=== PATIENT | female | born 1950 | race Caucasian/White ===

== ENCOUNTER → 2016-12-17 | Outpatient (CLI) | payer MEDICARE ==
--- NOTE | 2016-12-19 07:14 | MM ---
Reason for exam: screening (asymptomatic). Last mammogram was performed 1 year and 7 months ago. History: Patient is postmenopausal. Took estrogen for 2 years beginning at age 51. Took progesterone for 2 years beginning at age 51. Physical Findings: A clinical breast exam by your physician is recommended on an annual basis and results should be correlated with mammographic findings. MG 3D Screening Mammo W/Cad Bilateral CC and MLO view(s) were taken. Prior study comparison: May 12, 2015, bilateral MG screening mammo w CAD. May 11, 2014, bilateral MG screening mammo w CAD. There are scattered fibroglandular densities. No significant changes when compared with prior studies. ASSESSMENT: Benign, BI-RAD 2 RECOMMENDATION: Routine screening mammogram of both breasts in 1 year.
== END | disposition home or self-care (01) ==
LOC: RADMAMWWP 16:26
PROVIDERS: ATTEND Family Medicine
DX: Z12.31 Encounter for screening mammogram for malignant neoplasm of breast (principal)
CPT/HCPCS: 77063; G0202

== ENCOUNTER → 2018-02-17 | Outpatient (CLI) | payer MEDICARE ==
--- NOTE | 2018-02-17 16:36 | BD ---
EXAMINATION TYPE: Axial Bone Density DATE OF EXAM: 02/17/2018 COMPARISON: 02/15/2016 CLINICAL HISTORY: 68-year-old female screening for osteoporosis Height: 64 IN Weight: 183 LBS RISK FACTORS HISTORY OF: Active: YES Diet low in dairy products/other sources of calcium: YES Postmenopausal woman: AGE 51 Take estrogen and/or progesterone medications: NOT NOW How long: AGE 51 - 52 MEDICATIONS: Thyroid Medications: YES Which medication: Levothyroxine How Lon YEARS Additional Medications: LEVOTHYROXIN, ENALAPRIL, HCTZ, PRAVASTATIN, EXAM MEASUREMENTS: Bone mineral densitometry was performed using the [employer] System. Bone mineral density as measured about the Lumbar spine is: ----- L1-L4(G/cm2): 1.274 T Score Values are as follows: ----- L2: -1.1 ----- L3: -0.3 ----- L4: 3.5 ----- L1-L4: 0.8 Bone mineral density has: Decreased -9.9% since study of: 02/15/2016 Bone mineral density about the R hip (g/cm2): 0.974 Bone mineral density about the L hip (g/cm2): 1.000 T Score values are as follows: -----R Neck: -0.5 -----L Neck: -0.3 -----R Total: -0.2 -----L Total: 0.1 Bone mineral density has: Increased 1.2% since study of: 02/15/2016 IMPRESSION: Normal (Values between +1 and -1 indicate normal bone mass). Consider repeating this study in 5 year s or sooner if there is some new clinical indication. NOTE: T-SCORE=SD OF THE YOUNG ADULT MEAN.
--- NOTE | 2018-02-18 11:00 | MM ---
Reason for exam: screening (asymptomatic). Last mammogram was performed 1 year and 2 months ago. History: Patient is postmenopausal. Took estrogen for 2 years beginning at age 51. Took progesterone for 2 years beginning at age 51. Physical Findings: A clinical breast exam by your physician is recommended on an annual basis and results should be correlated with mammographic findings. MG 3D Screening Mammo W/Cad Bilateral CC and MLO view(s) were taken. Prior study comparison: December 17, 2016, bilateral MG 3d screening mammo w/cad. May 12, 2015, bilateral MG screening mammo w CAD. There are scattered fibroglandular densities. Asymmetric breast tissue in the left breast posterior position, stable. There is no discrete abnormality. ASSESSMENT: Negative, BI-RAD 1 RECOMMENDATION: Routine screening mammogram of both breasts in 1 year.
== END | disposition home or self-care (01) ==
LOC: RADMAMWWP 08:45
PROVIDERS: ATTEND Family Medicine
DX: Z12.31 Encounter for screening mammogram for malignant neoplasm of breast (principal); Z13.820 Encounter for screening for osteoporosis
CPT/HCPCS: 77063; 77067; 77080

== ENCOUNTER → 2018-03-27 | Outpatient (CLI) | payer MEDICARE ==
[2018-03-27 13:56] LABS: HCT 39.4 % (34.0-46.0); HGB 13.1 gm/dL (11.4-16.0); MCH 31.3 pg (25.0-35.0); MCHC 33.1 g/dL (31.0-37.0); MCV 94.5 fL (80.0-100.0); Mean Platelet Volume 7.8; Platelet Count 215 k/uL (150-450); RBC 4.17 m/uL (3.80-5.40); RDW 14.5 % (11.5-15.5)
[2018-03-27 14:12] LABS: Potassium 4.3 mmol/L (3.5-5.1)
== END | disposition home or self-care (01) ==
LOC: LABPAT 13:33
PROVIDERS: ATTEND Internal Medicine Interventional Cardiology
DX: Z01.812 Encounter for preprocedural laboratory examination (principal); I10 Essential (primary) hypertension; E78.2 Mixed hyperlipidemia; R07.9 Chest pain, unspecified
CPT/HCPCS: 80051; 82565; 84520; 85027

== ENCOUNTER 2018-04-03 06:20 | Day surgery (SDC) | payer MEDICARE ==
[~2018-04-03 06:20] MED LIST: ALPRAZolam 0.25 MG TAB PO PRN; ALPRAZolam 0.5 MG TAB PO PRN; ASPIRIN 325 MG TAB PO STA; ATORVASTATIN 80 MG TAB PO STA; NITROGLYCERIN SL TABS 0.4 MG TAB SUBLINGUAL PRN; SODIUM CHLORIDE 0.9% 1,000 ML in EMPTY BAG 1 BAG IV ONE
[2018-04-03] MEDS ORDERED: SODIUM CHLORIDE 0.9% 1,000 ML IV ONE (06:45)
[2018-04-03] MEDS ORDERED: LIDOCAINE 1% INJ 10MG/ML (20 ML MDV) ONE (07:11)
[2018-04-03] MEDS ORDERED: fentaNYL (PF) 50 MCG/ML 2 ML AMP ONE (07:11)
[2018-04-03] MEDS ORDERED: VERAPAMIL 2.5 MG/ML 2 ML AMP ONE (07:12)
[2018-04-03] MEDS ORDERED: HEPARIN SODIUM 1,000 UN/ML (10ML VL) ONE (07:12)
[2018-04-03] MEDS ORDERED: fentaNYL (PF) 50 MCG/ML 2 ML AMP IV ONE (07:44)
[2018-04-03] MEDS ORDERED: LIDOCAINE 1% INJ 10MG/ML (20 ML MDV) SQ ONE (07:48)
[2018-04-03] MEDS ORDERED: VERAPAMIL SYRINGE (5 MG/10 ML) INTRAARTER ONE (07:50)
[2018-04-03] MEDS ORDERED: HEPARIN SODIUM 1,000 UN/ML (10ML VL) IV ONE (07:57)
[2018-04-03] MEDS ORDERED: IOPAMIDOL-370 125ML BTL INJ ONE (08:01)
[2018-04-03] MEDS ORDERED: RX INFO: IV CONTRAST WAS GIVEN 1 EACH MISC MISCELLANE PRN (08:17)
[2018-04-03] MEDS ORDERED: SODIUM CHLORIDE 0.9% 1,000 ML IV SCH (08:30)
--- NOTE | 2018-04-03 08:46 | CC ---
CARDIAC CATHETERIZATION REPORT Mrs. Lala is a 68-year-old female with known history of hypertension, hyperlipidemia, who has been complaining of episode of chest discomfort when she walks on the treadmill. She has underwent a myocardial perfusion imaging that revealed lateral wall defect. In view of that, recommendation was made regarding cardiac catheterization. The procedure as well as the risks and the complications were discussed with the patient who is in full understanding and agreement. PROCEDURE: Patient was brought to central lab technician in a fasting semi-sedated state after receiving fentanyl and Benadryl and achieving moderate conscious sedated state. Using Xylocaine anesthesia in the Seldinger technique, a 6-Libyan sheath was introduced in the right radial artery. Selective right and left coronary angiography performed using 5-Libyan 3.5 bend right and left Jose R catheters. Multiple views of the coronary artery including hemiaxial views were obtained. Following that 5-Libyan tight pigtail catheter was introduced in the left ventricle and a 30-degree HILTON view of the left ventricle was obtained. Following that, catheter and sheaths were removed. Hemostasis was obtained with deployment of an TR band. There was no immediate complication. Patient is returned to room in stable condition. Of note, the patient received 4500 units of intravenous heparin as well as intra-arterial verapamil. FINDINGS: FLUOROSCOPY: There was calcification involving the right coronary artery and the LAD and left circumflex. LEFT MAIN: This is a large-sized vessel bifurcating in left circumflex and left anterior descending artery. Left main coronary artery has no evidence of high-grade stenosis. LEFT ANTERIOR DESCENDING ARTERY: This is a large-sized vessel reaching towards the apex, tapers down distally, tortuous in the distal third, gives rise to a moderately sized diagonal branch in mid segment. The left anterior descending artery and its branches have no evidence of obstructive coronary disease. LEFT CIRCUMFLEX: This is a nondominant vessel giving rise to 2 obtuse marginal branches. The left circumflex after the takeoff of the first obtuse marginal branch has minimal intimal plaque of 10%. RIGHT CORONARY ARTERY: This is a large dominant vessel bifurcating distally to PDA, posterolateral segment and branches. The right coronary artery in the proximal segment has mild intimal disease of 10% to 20% There was no evidence of high-grade stenosis. LEFT VENTRICULOGRAM: Left ventriculogram is performed in 30-degree HILTON view and revealed normal left ventricular size and systolic function. Ejection fraction 60%. There was no significant mitral regurgitation. HEMODYNAMICS: There was no gradient across the aortic valve. The left ventricular end- diastolic pressure was 12 mmHg. CONCLUSION: 1. Calcified coronary artery with minimal intimal disease involving the left circumflex and the right coronary artery. 2. Preserved left ventricular size and systolic function. RECOMMENDATION: In view of finding anatomy, I recommend to continue medical therapy with aggressive coronary risk modification that has been initiated. Those findings and recommendations were discussed with the patient and her family and they are in full understanding and agreement. Duration of procedure is 17 minutes. MMODL / IJN: [id number] /
[2018-04-03 08:51] VITALS: TEMP 98.2
[2018-04-03] MEDS ORDERED: NON-FORMULARY DRUG (Enalapril 10 MG) PO SCH (09:00)
[2018-04-03] MEDS ORDERED: HYDROCHLOROTHIAZIDE 25 MG TAB PO SCH (09:00)
[2018-04-03] MEDS ORDERED: ASPIRIN 81 MG PO SCH (09:00)
[2018-04-03] MEDS ORDERED: LEVOTHYROXINE 50 MCG TAB PO SCH (09:00)
[2018-04-03] MEDS ORDERED: ISOSORBIDE MONONITRATE ER 30 MG TAB.ER.24H PO SCH (09:00)
[2018-04-03 11:04] VITALS: RESP 18
[2018-04-03 11:44] VITALS: BP 104/56; PULSE 65
[2018-04-03] MEDS ORDERED: PRAVASTATIN SODIUM 20 MG TAB PO SCH (21:00)
== END 2018-04-03 13:00 | disposition home or self-care (01) ==
LOC: CATHCVL 06:20
PROVIDERS: ATTEND Internal Medicine Interventional Cardiology
DX: I25.10 Atherosclerotic heart disease of native coronary artery without angina pectoris (principal); I77.1 Stricture of artery; I10 Essential (primary) hypertension; E78.2 Mixed hyperlipidemia; Z82.49 Family history of ischemic heart disease and other diseases of the circulatory system; Z79.82 Long term (current) use of aspirin; Z79.899 Other long term (current) drug therapy
CPT/HCPCS: 93458; C1894; C1769; J2001; J3010; J1644; Q9967

== ENCOUNTER → 2019-03-05 | Outpatient (CLI) | payer MEDICARE ==
--- NOTE | 2019-03-09 09:31 | MM ---
Reason for exam: screening (asymptomatic). Last mammogram was performed 1 year and 1 month ago. History: Patient is postmenopausal. Took estrogen for 2 years beginning at age 51. Took progesterone for 2 years beginning at age 51. Physical Findings: A clinical breast exam by your physician is recommended on an annual basis and results should be correlated with mammographic findings. MG 3D Screening Mammo W/Cad Bilateral CC and MLO view(s) were taken. Prior study comparison: February 17, 2018, bilateral MG 3d screening mammo w/cad. December 17, 2016, bilateral MG 3d screening mammo w/cad. There are scattered fibroglandular densities. No significant changes when compared with prior studies. ASSESSMENT: Benign, BI-RAD 2 RECOMMENDATION: Routine screening mammogram of both breasts in 1 year.
== END | disposition home or self-care (01) ==
LOC: RADMAMWWP 08:09
PROVIDERS: ATTEND Family Medicine
DX: Z12.31 Encounter for screening mammogram for malignant neoplasm of breast (principal)
CPT/HCPCS: 77063; 77067

== ENCOUNTER → 2020-05-03 | Outpatient (CLI) | payer MEDICARE ==
--- NOTE | 2020-05-03 11:40 | MM ---
Reason for exam: screening (asymptomatic). Last mammogram was performed 1 year and 2 months ago. History: Patient is postmenopausal. Took estrogen for 2 years beginning at age 51. Took progesterone for 2 years beginning at age 51. Physical Findings: A clinical breast exam by your physician is recommended on an annual basis and results should be correlated with mammographic findings. MG 3D Screening Mammo W/Cad Bilateral CC and MLO view(s) were taken. Prior study comparison: March 05, 2019, bilateral MG 3d screening mammo w/cad. February 17, 2018, bilateral MG 3d screening mammo w/cad. There are scattered fibroglandular densities. No significant changes when compared with prior studies. ASSESSMENT: Benign, BI-RAD 2 RECOMMENDATION: Routine screening mammogram of both breasts in 1 year.
== END | disposition home or self-care (01) ==
LOC: RADMAMWWP 09:49
PROVIDERS: ATTEND Family Medicine
DX: Z12.31 Encounter for screening mammogram for malignant neoplasm of breast (principal)
CPT/HCPCS: 77063; 77067

== ENCOUNTER → 2021-05-04 | Outpatient (CLI) | payer MEDICARE ==
--- NOTE | 2021-05-08 10:57 | MM ---
Reason for exam: screening (asymptomatic). Last mammogram was performed 1 year ago. History: Patient is postmenopausal. Took hormonal contraceptives for 10 years. Took estrogen for 2 years beginning at age 51. Took progesterone for 2 years beginning at age 51. Physical Findings: A clinical breast exam by your physician is recommended on an annual basis and results should be correlated with mammographic findings. MG 3D Screening Mammo W/Cad Bilateral CC and MLO view(s) were taken. Prior study comparison: May 03, 2020, bilateral MG 3d screening mammo w/cad. March 05, 2019, bilateral MG 3d screening mammo w/cad. February 17, 2018, bilateral MG 3d screening mammo w/cad. There are scattered fibroglandular densities. No significant changes when compared with prior studies. ASSESSMENT: Benign, BI-RAD 2 RECOMMENDATION: Routine screening mammogram of both breasts in 1 year.
== END | disposition home or self-care (01) ==
LOC: RADMAMWWP 13:17
PROVIDERS: ATTEND Family Medicine
DX: Z12.31 Encounter for screening mammogram for malignant neoplasm of breast (principal); Z78.0 Asymptomatic menopausal state
CPT/HCPCS: 77063; 77067

== ENCOUNTER → 2022-02-02 | Outpatient (CLI) | payer MEDICARE ==
--- NOTE | 2022-02-02 17:28 | CTL ---
EXAMINATION TYPE: CT Low Dose Lung DATE OF EXAM ORDERED: 02/02/2022 HISTORY: 72-year-old female Z87.891, personal history of tobacco use. Lung cancer screening CT DLP: [address] CTDI: 2.4 mGy Automated exposure control for dose reduction was used. SCREENING VISIT: None COMPARISON: Abdomen and pelvis 05/12/2014 TECHNIQUE: Low dose computed tomography scan was performed through the chest with coronal and sagitta l reconstructions. CT DIAGNOSTIC QUALITY: Satisfactory FINDINGS: Heart normal size without pericardial effusion. LAD and RCA coronary artery calcifications are presen t. Aorta normal caliber with mild atherosclerotic arch calcifications. Conventional branching anatomy. No thoracic lymphadenopathy by CT size criteria. 7 mm nodule below the skin surface left paramedian upper anterior chest wall, suspected sebaceous cys t. Approximately 3 subtle groundglass foci measuring up to 6 mm in the right upper lobe, axial image 75, 77, and 80. 4 mm pulmonary nodule right mid lung along the major fissure, axial image 142. Larger 5 mm pulmonary nodule right mid lung along the major fissure, axial image 158. Tiny 3 mm pulmonary nodule left mid lung along the major fissure, axial image 161. No consolidation or pleural effusion. There is a 7 mm hypodense lesion anterior right hepatic dome, unchanged from 2014 compatible with a b enign etiology. Mild to moderate apical scarring calcifications visualized infrarenal abdominal aorta . Bones: Moderate degenerative disc disease mid to lower thoracic spine. IMPRESSION: 1. Lung RADS 2, benign; a few scattered pulmonary nodules measuring up to 5 mm along the fissures, ty pical of subpleural lymph nodes. A few groundglass foci in the right upper lobe measuring up to 6 mm could represent small infectious/inflammatory foci. Clinically correlate. 2. CAD with LAD and RCA coronary artery calcifications. CT LUNG RAD AND CT CHEST RECOMMENDATION: Lung-Rad 2 Benign Appearance or Behavior: Continue annual sc reening with LDCT in 12 months. S Modifier (other clinically significant findings): None
== END | disposition home or self-care (01) ==
LOC: RADCTMAIN 12:30
PROVIDERS: ATTEND Family Medicine
DX: Z12.2 Encounter for screening for malignant neoplasm of respiratory organs (principal); R91.8 Other nonspecific abnormal finding of lung field; Z87.891 Personal history of nicotine dependence
CPT/HCPCS: 71271

== ENCOUNTER → 2022-05-10 | Outpatient (CLI) | payer MEDICARE ==
--- NOTE | 2022-05-10 08:37 | XR ---
EXAMINATION TYPE: XR chest 2V DATE OF EXAM: 05/10/2022 COMPARISON: Low-dose lung screening CT February 02, 2022 HISTORY: Tobacco use. TECHNIQUE: Frontal and lateral views of the chest are obtained. FINDINGS: There is no suspicious new focal air space opacity, pleural effusion, or pneumothorax see n. The cardiac silhouette size remains within normal limits. The osseous structures are intact. IMPRESSION: No acute cardiopulmonary process.
--- NOTE | 2022-05-11 07:54 | MM ---
Reason for Exam: Screening (asymptomatic). Last mammogram was performed 1 year(s) and 1 month(s) ago. Patient History: Menarche at age 14. First Full-Term at age 21. Postmenopausal. Estrogen for 2 years from age 51 until age 53. Progesterone for 2 years from age 51 until age 53. Patient used Hormonal Contraceptives for 10 years. Risk Values: Halle 5 year model risk: 1.6%. NCI Lifetime model risk: 4.3%. Prior Study Comparison: 03/05/2019 Bilateral Screening Mammogram, [facility]. 05/03/2020 Bilateral Screening Mammogram, [facility]. 05/04/2021 Bilateral Screening Mammogram, [facility]. Tissue Density: There are scattered fibroglandular densities. Findings: Analyzed By CAD. There is no suspicious group of microcalcifications or new suspicious mass in either breast. No significant change from prior exams. Overall Assessment: Benign, BI-RAD 2 Management: Screening Mammogram of both breasts in 1 year. A clinical breast exam by your physician is recommended on an annual basis and results should be correlated with mammographic findings. Electronically signed and approved by: Michelet Meneses D.O.
== END | disposition home or self-care (01) ==
LOC: RADMAMWWP 07:41
PROVIDERS: ATTEND Family Medicine
DX: Z12.31 Encounter for screening mammogram for malignant neoplasm of breast (principal); Z87.891 Personal history of nicotine dependence; Z78.0 Asymptomatic menopausal state
CPT/HCPCS: 71046; 77063; 77067

== ENCOUNTER → 2023-02-08 | Outpatient (CLI) | payer MEDICARE ==
--- NOTE | 2023-02-08 17:51 | CTL ---
EXAMINATION TYPE: CT Low Dose Lung DATE OF EXAM ORDERED: 02/08/2023 HISTORY: Nicotine dependence. Lung cancer screening CT DLP: 107.2 mGycm Automated exposure control for dose reduction was used. SCREENING VISIT: Subsequent COMPARISON: 02/02/2022 TECHNIQUE: Low dose computed tomography scan was performed through the chest at 1 mm thick sections a nd reconstructed images in the coronal plane at [address] DIAGNOSTIC QUALITY: Satisfactory FINDINGS: LUNG NODULES: None. LUNGS: COPD: Severity: None Fibrosis: Severity: None Lymph nodes: None Other findings: None RIGHT PLEURAL SPACE: Effusion: None Calcification: None Thickening: None Pneumothorax: None LEFT PLEURAL SPACE: Effusion: None Calcification: None Thickening: None Pneumothorax: None HEART: Heart Size: Normal Coronary calcification: Mild Pericardial effusion: None OTHER FINDINGS: Upper abdomen: Normal Bony thorax: Normal Supraclavicular region: Normal Other: Ascending thoracic aorta at the main pulmonary artery is 3.4 cm. Main pulmonary artery bifurca tion is 2.4 cm. IMPRESSION: Negative screening FOLLOW UP CT CHEST RECOMMENDATION: Follow-up low-dose CT chest [address] LUNG RAD: Lung-Rad 1 Negative
== END | disposition home or self-care (01) ==
LOC: RADCTMAIN 11:17
PROVIDERS: ATTEND Family Medicine
DX: Z12.2 Encounter for screening for malignant neoplasm of respiratory organs (principal); R91.1 Solitary pulmonary nodule; F17.210 Nicotine dependence, cigarettes, uncomplicated
CPT/HCPCS: 71271

== ENCOUNTER → 2023-05-13 | Outpatient (CLI) | payer MEDICARE ==
--- NOTE | 2023-05-13 09:15 | MM ---
Reason for Exam: Screening (asymptomatic). Last screening mammogram was performed 12 month(s) ago. Patient History: Menarche at age 14. First Full-Term at age 21. Postmenopausal. Estrogen for 2 years from age 51 until age 53. Progesterone for 2 years from age 51 until age 53. Patient used Hormonal Contraceptives for 10 years. Risk Values: Halle 5 year model risk: 1.6%. NCI Lifetime model risk: 4.1%. Prior Study Comparison: 05/03/2020 Bilateral Screening Mammogram, [facility]. 05/04/2021 Bilateral Screening Mammogram, [facility]. 05/10/2022 Bilateral MG 3D screening mammo w/cad, [facility]. Tissue Density: There are scattered fibroglandular densities. Findings: Analyzed By CAD. There is no suspicious group of microcalcifications or new suspicious mass in either breast. No significant change from prior exams. Overall Assessment: Negative, BI-RAD 1 Management: Screening Mammogram of both breasts in 1 year. A clinical breast exam by your physician is recommended on an annual basis and results should be correlated with mammographic findings. Note on Halle scores and lifetime risk: 1. A Halle score greater than 3% is considered moderate risk. If this is the case, consider specialist referral to assess eligibility for a risk reducing agent. If overall lifetime risk for the development of breast cancer is 20% or higher, the patient may qualify for future screening with alternating mammogram and breast MRI. Electronically signed and approved by: Michelet Meneses D.O.
--- NOTE | 2023-05-13 09:40 | BD ---
EXAMINATION TYPE: Axial Bone Density DATE OF EXAM: 05/13/2023 CLINICAL HISTORY: 73 years old Female. ICD-10 CODE: Z13.820 SCREENING FOR OSTEOPOROSIS Height: 63.5 Weight: 172 FRAX RISK QUESTIONS: Secondary Osteoporosis: yes 3. Menopause before 45: yes RISK FACTORS HISTORY OF: Postmenopausal woman: yes at 45 Take estrogen and/or progesterone medications: in past only briefly. Hyperparathyroidism: no Adrenal Insufficiency: no MEDICATIONS: Thyroid Medications: yes, synthroid for about 20 yrs Additional Medications: bp meds,statin for cholesterol, Additional History: hypertension, cholesterol, thyroid, early menopause. EXAM MEASUREMENTS: Bone mineral densitometry was performed using the [employer] System. Bone mineral density as measured about the Lumbar spine is: ----- L1-L4(G/cm2): 1.255 T Score Values are as follows: ----- L1: -0.4 ----- L2: -1.0 ----- L3: 0.5 ----- L4: 3.0 ----- L1-L4: 0.6 Z Score Values are as follows: ----- L1: 0.9 ----- L2: 0.3 ----- L3: 1.8 ----- L4: 4.2 ----- L1-L4: 1.9 Bone mineral density has: Decreased -1.5% since study of: 02.17.2018 Bone mineral density about the R hip (g/cm2): 0.979 Bone mineral density about the L hip (g/cm2): 1.041 T Score values are as follows: -----R Neck: -0.7 -----L Neck: -0.5 -----R Total: -0.2 -----L Total: 0.3 Z Score values are as follows: -----R Neck: 0.8 -----L Neck: 1.0 -----R Total: 1.0 -----L Total: 1.5 Bone mineral density has: Increased 0.7% since study of: 02.17.2018 FRAX%s: The graph provided illustrates a 8.3% chance for a major osteoporotic fx and a 0.8% chance fo r the hips probability for fx in 10 years time. IMPRESSION: Normal (Values between +1 and -1 indicate normal bone mass). Consider repeating this study in 5 year s or sooner if there is some new clinical indication. NOTE: T-SCORE=SD OF THE YOUNG ADULT MEAN.
== END | disposition home or self-care (01) ==
LOC: RADBDWWP 07:00
PROVIDERS: ATTEND Family Medicine
DX: Z12.31 Encounter for screening mammogram for malignant neoplasm of breast (principal); Z13.820 Encounter for screening for osteoporosis; Z78.0 Asymptomatic menopausal state
CPT/HCPCS: 77063; 77067; 77080

== ENCOUNTER 2023-05-18 06:57 | Observation (INO) | payer MEDICARE ==
[2023-05-18] MEDS ORDERED: ASPIRIN 81 MG PO STA (07:13)
[2023-05-18] MEDS ORDERED: NITROGLYCERIN SL TABS 0.4 MG TAB SUBLINGUAL STA ×3 (07:13)
--- NOTE | 2023-05-18 07:16 | ED ---
General Adult HPI - General Chief complaint: Chest Pain Stated complaint: chest pains Time Seen by Provider: 05/18/23 07:03 Source: patient, RN notes reviewed Mode of arrival: wheelchair Limitations: no limitations - History of Present Illness Initial comments: Patient is a pleasant 73-year-old female presenting to the emergency department with concerns for chest discomfort. Onset of symptoms was yesterday evening. Discomfort is rated 6/10. Discomfort feels like pressure. Patient states sometimes it is difficult to take a deep breath. No nausea. No diaphoresis. No history of similar symptoms previously. - Related Data Home Medications Medication Instructions Recorded Confirmed Aspirin 81 mg PO DAILY 05/12/14 04/03/18 Enalapril [Vasotec] 10 mg PO BID 05/12/14 04/03/18 Levothyroxine Sodium [Synthroid] 50 mcg PO DAILY 05/12/14 04/03/18 Pravastatin Sodium [Pravachol] 20 mg PO HS 05/12/14 04/03/18 hydroCHLOROthiazide 25 mg PO DAILY 03/31/18 04/03/18 Previous Rx's Medication Instructions Recorded Isosorbide Mononitrate ER [Imdur] 30 mg PO DAILY #90 tab.er.24h 04/03/18 Allergies Allergy/AdvReac Type Severity Reaction Status Date / Time nickel Allergy Unknown RED, Verified 05/18/23 07:00 INFECTION IN EAR LOBES, ([place]) Review of Systems ROS Statement: Those systems with pertinent positive or pertinent negative responses have been documented in the HPI. ROS Other: All systems not noted in ROS Statement are negative. Constitutional: Denies: fever Eyes: Denies: eye pain ENT: Denies: ear pain Respiratory: Reports: as per HPI Cardiovascular: Reports: as per HPI, chest pain Endocrine: Denies: fatigue Gastrointestinal: Denies: abdominal pain Genitourinary: Denies: dysuria Past Medical History Past Medical History: Hyperlipidemia, Hypertension, Thyroid Disorder Additional Past Medical History / Comment(s): LOW THYROID, HX OF DIVERTICULITIS. History of Any Multi-Drug Resistant Organisms: None Reported Past Surgical History: Tubal Ligation Past Anesthesia/Blood Transfusion Reactions: No Reported Reaction Past Psychological History: No Psychological Hx Reported Smoking Status: Never smoker Past Alcohol Use History: Rare Past Drug Use History: None Reported - Past Family History Mother Family Medical History: No Reported History General Exam Limitations: no limitations General appearance: alert, in no apparent distress Head exam: Present: normocephalic Eye exam: Present: normal appearance Neck exam: Present: normal inspection Respiratory exam: Present: normal lung sounds bilaterally. Absent: chest wall tenderness Cardiovascular Exam: Present: regular rate, normal rhythm, normal heart sounds Expanded Peripheral pulses: 2+: Radial (R), Radial (L), Posterior Tibialis (R), Posterior Tibialis (L) GI/Abdominal exam: Present: soft. Absent: tenderness Extremities exam: Present: normal inspection. Absent: pedal edema, calf tenderness Neurological exam: Present: alert Psychiatric exam: Present: normal affect, normal mood Skin exam: Present: normal color Course Vital Signs 05/18/23 07:00 Temperature 98.6 F Pulse Rate 68 Respiratory 16 Rate Blood Pressure 167/86 O2 Sat by Pulse 99 Oximetry EKG Findings - EKG Results: EKG: interpreted by MITUL (Atrial rhythm. Left axis. Anterior septal and inferior Q waves. No acute ST change.) Medical Decision Making - Medical Decision Making Was pt. sent in by a medical professional or institution ([facility], FIELD REPORTER, urgent care, hospital, or fdc...) When possible be specific @ -[No] Did you speak to anyone other than the patient for history (EMS, parent, family, police, friend...)? What history was obtained from this source @ -Family is present and helps confirm his Did you review nursing and triage notes (agree or disagree)? Why? @ -[I reviewed and agree with nursing and triage notes] Were old charts reviewed (outside hosp., previous admission, EMS record, old EKG, old radiological studies, urgent care reports/EKG's, fdc records)? Report findings @ -No EKGs from previous are available despite searching Differential Diagnosis (chest pain, altered mental status, abdominal pain women, abdominal pain men, vaginal bleeding, weakness, fever, dyspnea, syncope, headache, dizziness, GI bleed, back pain, seizure, CVA, palpatations, mental health, musculoskeletal)? @ -Differential Chest Pain: Stable Angina, Unstable Angina, STEMI, NSTEMI Aortic Dissection, Pneumothorax, Musculoskeletal, Esophageal Spasm GERD, Cholecystitis, Pancreatitis, Zoster, this is not meant to be an all-inclusive list. EKG interpreted by me (3pts min.). @ -[As above] X-rays interpreted by me (1pt min.). @ -Chest x-ray does not reveal acute abnormality CT interpreted by me (1pt min.). @ -[None done] U/S interpreted by me (1pt. min.). @ -[None done] What testing was considered but not performed or refused? (CT, X-rays, U/S, labs)? Why? @ -[None] What meds were considered but not given or refused? Why? @ -[None] Did you discuss the management of the patient with other professionals (professionals i.e. , PA, FIELD REPORTER, lab, RT, psych nurse, mental health social worker, automobile brake bonder, teacher, tactical debriefer officer, rn field case manager)? Give summary @ -Case was discussed with Dr. Suárez, who will admit For Dr. Hernández Was smoking cessation discussed for >3mins.? @ -[No] Was critical care preformed (if so, how long)? @ -[No] Were there social determinants of health that impacted care today? How? (Homelessness, low income, unemployed, alcoholism, drug addiction, transportation, low edu. Level, literacy, decrease access to med. care, senior living, rehab)? @ -[No] Was there de-escalation of care discussed even if they declined (Discuss DNR or withdrawal of care, Hospice)? DNR status @ -[No] What co-morbidities impacted this encounter? (DM, HTN, Smoking, COPD, CAD, Cancer, CVA, ARF, Chemo, Hep., AIDS, mental health diagnosis, sleep apnea, morbid obesity)? @ -[None] Was patient admitted / discharged? Hospital course, mention meds given and route, prescriptions, significant lab abnormalities, going to OR and other pertinent info. @ -Patient reevaluated and somewhat improved with nitroglycerin. Discomfort is currently 3/10. Patient and family updated on results and plan. Admission orders written. Cardiac consult will be placed. Undiagnosed new problem with uncertain prognosis? @ -[No] Drug Therapy requiring intensive monitoring for toxicity (Heparin, Nitro, Insulin, Cardizem)? @ -[No] Were any procedures done? @ -[No] Diagnosis/symptom? @ -Chest pain Acute, or Chronic, or Acute on Chronic? @ -Acute Uncomplicated (without systemic symptoms) or Complicated (systemic symptoms)? @ -[default] Side effects of treatment? @ -[No] Exacerbation, Progression, or Severe Exacerbation? @ -[No] Poses a threat to life or bodily function? How? (Chest pain, [place], [place], pneumonia, PE, COPD, DKA, ARF, appy, cholecystitis, CVA, Diverticulitis, Homicidal, Suicidal, threat to staff... and all critical care pts) @ -Chest pain does have potential to be cardiac or other with potential threat to life or bodily function. - Lab Data Result diagrams: 05/18/23 07:29 05/18/23 07:29 Lab Results 05/18/23 05/18/23 05/18/23 Range/Units 07:29 07: 07:29 WBC 6.4 (3.8-10.6) k/uL RBC 4.19 (3.80-5.40) m/uL Hgb 13.5 (11.4-16.0) gm/dL Hct 40.0 (34.0-46.0) % MCV 95.4 (80.0-100.0) fL MCH 32.2 (25.0-35.0) pg MCHC 33.8 (31.0-37.0) g/dL RDW 14.5 (11.5-15.5) % Plt Count 166 (150-450) k/uL MPV 7.9 Neutrophils % 64 % Lymphocytes % 25 % Monocytes % 7 % Eosinophils % 2 % Basophils % 0 % Neutrophils # 4.1 (1.3-7.7) k/uL Lymphocytes # 1.6 (1.0-4.8) k/uL Monocytes # 0.4 (0-1.0) k/uL Eosinophils # 0.1 (0-0.7) k/uL Basophils # 0.0 (0-0.2) k/uL PT 10.8 (10.0-12.5) sec INR 1.0 (<1.2) APTT 26.8 (22.0-30.0) sec D-Dimer 0.36 (<0.60) mg/L FEU Sodium 134 L (137-145) mmol/L Potassium 4.2 (3.5-5.1) mmol/L Chloride 101 (98-107) mmol/L Carbon Dioxide 23 (22-30) mmol/L Anion Gap 10 mmol/L BUN 15 (7-17) mg/dL Creatinine 0.57 (0.52-1.04) mg/dL Est GFR (CKD-EPI)AfAm >90 (>60 ml/min/1.73 sqM) Est GFR (CKD-EPI)NonAf >90 (>60 ml/min/1.73 sqM) Glucose 111 H (74-99) mg/dL Calcium 9.5 (8.4-10.2) mg/dL Magnesium 2.0 (1.6-2.3) mg/dL Total Bilirubin 0.5 (0.2-1.3) mg/dL AST 22 (14-36) U/L ALT 25 (4-34) U/L Alkaline Phosphatase 83 (38-126) U/L Troponin I (0.000-0.034) ng/mL Total Protein 6.9 (6.3-8.2) g/dL Albumin 4.3 (3.5-5.0) g/dL 05/18/23 Range/Units 07:29 WBC (3.8-10.6) k/uL RBC (3.80-5.40) m/uL Hgb (11.4-16.0) gm/dL Hct (34.0-46.0) % MCV (80.0-100.0) fL MCH (25.0-35.0) pg MCHC (31.0-37.0) g/dL RDW (11.5-15.5) % Plt Count (150-450) k/uL MPV Neutrophils % % Lymphocytes % % Monocytes % % Eosinophils % % Basophils % % Neutrophils # (1.3-7.7) k/uL Lymphocytes # (1.0-4.8) k/uL Monocytes # (0-1.0) k/uL Eosinophils # (0-0.7) k/uL Basophils # (0-0.2) k/uL PT (10.0-12.5) sec INR (<1.2) APTT (22.0-30.0) sec D-Dimer (<0.60) mg/L FEU Sodium (137-145) mmol/L Potassium (3.5-5.1) mmol/L Chloride (98-107) mmol/L Carbon Dioxide (22-30) mmol/L Anion Gap mmol/L BUN (7-17) mg/dL Creatinine (0.52-1.04) mg/dL Est GFR (CKD-EPI)AfAm (>60 ml/min/1.73 sqM) Est GFR (CKD-EPI)NonAf (>60 ml/min/1.73 sqM) Glucose (74-99) mg/dL Calcium (8.4-10.2) mg/dL Magnesium (1.6-2.3) mg/dL Total Bilirubin (0.2-1.3) mg/dL AST (14-36) U/L ALT (4-34) U/L Alkaline Phosphatase (38-126) U/L Troponin I <0.012 (0.000-0.034) ng/mL Total Protein (6.3-8.2) g/dL Albumin (3.5-5.0) g/dL Disposition Clinical Impression: Chest pain Disposition: ADMITTED IP TO THIS HOSP Is patient prescribed a controlled substance at d/c from ED?: No Referrals: Vineet Hernández DO [Primary Care Provider] - 1-2 days Time of Disposition: 08:35
[2023-05-18 07:41] LABS: Basophils % (A) 0 %; Eosinophils # (A) 0.1 k/uL (0-0.7); Eosinophils % (A) 2 %; HGB 13.5 gm/dL (11.4-16.0); Lymphocytes # (A) 1.6 k/uL (1.0-4.8); Lymphocytes % (A) 25 %; MCH 32.2 pg (25.0-35.0); MCHC 33.8 g/dL (31.0-37.0); MCV 95.4 fL (80.0-100.0); Mean Platelet Volume 7.9; Monocytes # (A) 0.4 k/uL (0-1.0); Monocytes % (A) 7 %; Neutrophils # (A) 4.1 k/uL (1.3-7.7); Neutrophils % (A) 64 %; Platelet Count 166 k/uL (150-450); RBC 4.19 m/uL (3.80-5.40); RDW 14.5 % (11.5-15.5); WBC 6.4 k/uL (3.8-10.6)
[2023-05-18 07:56] LABS: ALT 25 U/L (4-34); AST 22 U/L (14-36); African American GFR (CKD) >90 (>60 ml/min/1.73 sqM); Albumin 4.3 g/dL (3.5-5.0); Alkaline Phosphatase 83 U/L (38-126); Anion Gap 10 mmol/L; Blood Urea Nitrogen 15 mg/dL (7-17); Calcium 9.5 mg/dL (8.4-10.2); Carbon Dioxide 23 mmol/L (22-30); Chloride 101 mmol/L (98-107); Glucose 111 mg/dL (74-99); Non-African American GFR(CKD) >90 (>60 ml/min/1.73 sqM); Potassium 4.2 mmol/L (3.5-5.1); Sodium 134 mmol/L (137-145); Total Bilirubin 0.5 mg/dL (0.2-1.3); Total Protein 6.9 g/dL (6.3-8.2)
[2023-05-18 07:59] LABS: Partial Thromboplastin Time 26.8 sec (22.0-30.0); Prothrombin Time 10.8 sec (10.0-12.5)
--- NOTE | 2023-05-18 08:02 | XR ---
EXAMINATION TYPE: XR chest 2V DATE OF EXAM: 05/18/2023 COMPARISON: 05/10/22 HISTORY: Shortness of breath TECHNIQUE: Frontal and lateral views of the chest are obtained. FINDINGS: Scattered senescent parenchymal changes noted. Hyperinflation compatible with COPD. No evidence for infiltrate. No evidence for atelectasis. Heart size is stable. Mediastinal structures are stable and grossly unremarkable. No evidence for hilar prominence. Degenerative changes dorsal spine. IMPRESSION: 1. No evidence for acute pulmonary disease.
[2023-05-18] MEDS ORDERED: NITROGLYCERIN SL TABS 0.4 MG TAB SUBLINGUAL PRN (08:35)
[2023-05-18] MEDS ORDERED: CAFFEINE CITRATE 60 MG/3 ML VIAL IV PRN (13:21)
[2023-05-18] MEDS ORDERED: AMINOPHYLLINE 500 MG/20 ML VIAL IV PRN (13:21)
--- NOTE | 2023-05-18 13:26 | P.CRDCN ---
History of Present Illness Consult date: 05/18/23 History of present illness: HISTORY OF PRESENTING ILLNESS Patient is a 73-year-old female with known history of hypertension, dyslipidemia and mild to moderate CAD. She had a heart catheterization in 2018 because of a positive nuclear stress test in the lateral wall. This was followed up by a cardiac catheterization which showed calcified coronaries with minimal disease involving the LCx and RCA. Since then she has been treated medically with Imdur and atorvastatin. She is known to Dr. Blake. Patient reported that since yesterday she has been having substernal chest pressure-like sensation which would come and go. This is not particularly related to activity or rest. She is not taking aspirin and is only on atorvastatin and Imdur Her ECG showed ectopic atrial with Q waves in anterior leads and inferior leads suggestive of old [place]. I don't have any prior ECGs to compare with. Her troponin and other labs are within normal limits REVIEW OF SYSTEMS 14 point review of system is negative except what is mentioned above in HPI. PHYSICAL EXAMINATION Vital signs reviewed. Head: Normocephalic. Eyes: Sclerae nonicteric. Neck: Brisk carotid upstroke, no jugular venous distention. Lungs: Clear to auscultation. Heart: Regular rate and rhythm, S1-S2, no S3, no murmur or rub. Abdomen: Soft nontender, positive bowel sounds no organomegaly. Extremities: No edema, intact distal pulses. ASSESSMENT Atypical chest pain. Rule out of acute coronary syndrome Ectopic atrial rhythm Q waves in anterior inferior leads suggestive of old [place] Prior positive nuclear stress test in lateral wall. Follow-up cardiac cath showed mild CAD PLAN Start aspirin 81 mg and metoprolol xl 25 mg day. Continue lisinopril, Imdur, atorvastatin. Obtain echocardiogram Obtain a Lexiscan nuclear stress test Follow-up after cardiac testing Past Medical History Past Medical History: Hyperlipidemia, Hypertension, Thyroid Disorder Additional Past Medical History / Comment(s): LOW THYROID, HX OF DIVERTICULITIS. History of Any Multi-Drug Resistant Organisms: None Reported Past Surgical History: Tubal Ligation Past Anesthesia/Blood Transfusion Reactions: No Reported Reaction Past Psychological History: No Psychological Hx Reported Smoking Status: Never smoker Past Alcohol Use History: Rare Past Drug Use History: None Reported - Past Family History Mother Family Medical History: No Reported History Medications and Allergies Home Medications Medication Instructions Recorded Confirmed Type Enalapril [Vasotec] 10 mg PO BID 05/12/14 05/18/23 History Levothyroxine Sodium [Synthroid] 50 mcg PO DAILY 05/12/14 05/18/23 History Isosorbide Mononitrate ER [Imdur] 30 mg PO DAILY #90 tab.er.24h 04/03/18 05/18/23 Rx OXcarbazepine [Trileptal] 300 mg PO BID 05/18/23 05/18/23 History Rosuvastatin [Crestor] 20 mg PO HS 05/18/23 05/18/23 History Allergies Allergy/AdvReac Type Severity Reaction Status Date / Time nickel Allergy Unknown RED, Verified 05/18/23 10:43 INFECTION IN EAR LOBES, ([place]) Physical Exam Vitals: Vital Signs Temp Pulse Resp BP Pulse Ox 05/18/23 07:00 98.6 F 68 16 167/86 99 Intake and Output 05/17/23 05/18/23 05/18/23 22:59 06:59 14:59 Other: Weight 77.111 kg Results 05/18/23 07:29 05/18/23 07:29 Cardiac Enzymes 05/18/23 05/18/23 05/18/23 Range/Units 07:29 07:29 10:25 AST 22 (14-36) U/L Troponin I <0.012 <0.012 (0.000-0.034) ng/mL Coagulation 05/18/23 Range/Units 07:29 PT 10.8 (10.0-12.5) sec APTT 26.8 (22.0-30.0) sec CBC 05/18/23 Range/Units 07:29 WBC 6.4 (3.8-10.6) k/uL RBC 4.19 (3.80-5.40) m/uL Hgb 13.5 (11.4-16.0) gm/dL Hct 40.0 (34.0-46.0) % Plt Count 166 (150-450) k/uL Comprehensive Metabolic Panel 05/18/23 Range/Units 07:29 Sodium 134 L (137-145) mmol/L Potassium 4.2 (3.5-5.1) mmol/L Chloride 101 (98-107) mmol/L Carbon Dioxide 23 (22-30) mmol/L BUN 15 (7-17) mg/dL Creatinine 0.57 (0.52-1.04) mg/dL Glucose 111 H (74-99) mg/dL Calcium 9.5 (8.4-10.2) mg/dL AST 22 (14-36) U/L ALT 25 (4-34) U/L Alkaline Phosphatase 83 (38-126) U/L Total Protein 6.9 (6.3-8.2) g/dL Albumin 4.3 (3.5-5.0) g/dL Current Medications Generic Name Dose Route Start Last Admin Trade Name Freq PRN Reason Stop Dose Admin Aminophylline 100 mg 05/18/23 13:21 Aminophylline 500 Mg/20 Ml Vial IV 05/18/23 17:22 ONCE PRN Patient Response Aspirin 81 mg 05/19/23 09:00 Aspirin 81 Mg PO DAILY [facility] Atorvastatin Calcium 40 mg 05/18/23 21:00 Atorvastatin 40 Mg Tab PO HS [facility] Caffeine Citrate 60 mg 05/18/23 13:21 Caffeine Citrate 60 Mg/3 Ml Vial IV 05/18/23 17:22 ONCE PRN Patient Response Isosorbide Mononitrate 30 mg 05/18/23 13:30 Isosorbide Mononitrate Er 30 Mg Tab.Er.24h PO DAILY [facility] Levothyroxine Sodium 50 mcg 05/18/23 13:15 Levothyroxine 50 Mcg Tab PO DAILY@0630 [facility] Lisinopril 40 mg 05/18/23 13:15 Lisinopril 20 Mg Tab PO DAILY [facility] Metoprolol Succinate 25 mg 05/18/23 12:45 Metoprolol Succinate (Er) 25 Mg Tab.Er.24h PO DAILY [facility] Nitroglycerin 0.4 mg 05/18/23 08:35 Nitroglycerin Sl Tabs 0.4 Mg Tab SUBLINGUAL Q5M PRN Chest Pain Oxcarbazepine 300 mg 05/18/23 13:15 Oxcarbazepine 300 Mg Tab PO BID [facility] Regadenoson 0.4 mg 05/18/23 13:21 Regadenoson 0.4 Mg/5 Ml Syringe IV 05/18/23 17:22 ONCE PRN Per Protocol Intake and Output 05/17/23 05/18/23 05/18/23 22:59 06:59 14:59 Other: Weight 77.111 kg Patient Weight 05/19/23 06:59 Weight 77.111 kg 05/18/23 07:29 05/18/23 07:29
[2023-05-18] MEDS: NITROGLYCERIN OINT 1 INCH/GM PACKET TOPICAL SCH (14:06)
[2023-05-18] MEDS: LEVOTHYROXINE 50 MCG TAB PO SCH (14:15)
[2023-05-18] MEDS: lisinopriL 20 MG TAB PO SCH (14:15)
[2023-05-18] MEDS: OXcarbazepine 300 MG TAB PO SCH ×2 (14:15→20:56)
[2023-05-18] MEDS: METOPROLOL SUCCINATE (ER) 25 MG TAB.ER.24H PO SCH (14:16)
[2023-05-18] MEDS: ISOSORBIDE MONONITRATE ER 30 MG TAB.ER.24H PO SCH (14:16)
--- NOTE | 2023-05-18 18:23 | P.HPIM ---
History of Present Illness H&P Date: 05/18/23 Chief Complaint: Chest pressure This is a pleasant 73-year-old patient who follows with Dr. Vineet Hernández. Chronic stable medical conditions include hypertension, hyperlipidemia, hypothyroid. No prior cardiac history. Since yesterday afternoon. She didn't getting episodes of days of chest pressure. Anteriorly. No radiation. No dizziness no lightheadedness. No perspiration tiredness nausea. Presented for the same. Patient in 1999 had a cardiac catheterization was told she has about 10-20% disease. By Dr. Blake. Accompanied by in the ER. Review of systems: GEN.: None EYES: None HEENT: None NECK: None RESPIRATORY: None CARDIOVASCULAR: As above GASTROINTESTINAL: None GENITOURINARY: None MUSCULOSKELETAL: None LYMPHATICS: None HEMATOLOGICAL: None PSYCHIATRY: None NEUROLOGICAL: None INVESTIGATIONS, reviewed in the clinical context: White count 6.4 hemoglobin 13.5 platelets 166 sodium 134 potassium 4.2 creatinine 0.57 Troponin I 3 negative EKG tracing personally reviewed by me-. Poor R-wave progression anterior leads Chest x-ray film personally reviewed by me-some hyperinflation. Assessment and plan: -Anterior chest wall pain. Rule out cardiac cause. Cardiac risk factors include hypertension, hyperlipidemia, age, prior smoker Telemetry. Will need a stress test. Aspirin -Essential hypertension Toprol XL 25 mg a day. Vasotec 10 mg twice a day -Hyperlipidemia Crestor 20 mg daily at bedtime -Hypothyroid Synthroid 50 g a day Care was discussed with the patient has been the bedside. Questions answered. . Past Medical History Past Medical History: Hyperlipidemia, Hypertension, Thyroid Disorder Additional Past Medical History / Comment(s): LOW THYROID, HX OF DIVERTICULITIS. History of Any Multi-Drug Resistant Organisms: None Reported Past Surgical History: Tubal Ligation Past Anesthesia/Blood Transfusion Reactions: No Reported Reaction Past Psychological History: No Psychological Hx Reported Smoking Status: Never smoker Past Alcohol Use History: Rare Past Drug Use History: None Reported - Past Family History Mother Family Medical History: No Reported History Medications and Allergies Home Medications Medication Instructions Recorded Confirmed Type Enalapril [Vasotec] 10 mg PO BID 05/12/14 05/18/23 History Levothyroxine Sodium [Synthroid] 50 mcg PO DAILY 05/12/14 05/18/23 History Isosorbide Mononitrate ER [Imdur] 30 mg PO DAILY #90 tab.er.24h 04/03/18 05/18/23 Rx OXcarbazepine [Trileptal] 300 mg PO BID 05/18/23 05/18/23 History Rosuvastatin [Crestor] 20 mg PO HS 05/18/23 05/18/23 History Allergies Allergy/AdvReac Type Severity Reaction Status Date / Time nickel Allergy Unknown RED, Verified 05/18/23 10:43 INFECTION IN EAR LOBES, ([place]) Physical Exam Vitals: Vital Signs Temp Pulse Resp BP Pulse Ox 05/18/23 07:00 98.6 F 68 16 167/86 99 Intake and Output 05/17/23 05/18/23 05/18/23 22:59 06:59 14:59 Other: Weight 77.111 kg Results CBC & Chem 7: 05/18/23 07:29 05/18/23 07:29 Labs: Abnormal Lab Results - Last 24 Hours (Table) 05/18/23 Range/Units 07:29 Sodium 134 L (137-145) mmol/L Glucose 111 H (74-99) mg/dL
[2023-05-18] MEDS: ENOXAPARIN 40 MG/0.4 ML SYRINGE SQ SCH (19:29)
[2023-05-18] MEDS: ATORVASTATIN 40 MG TAB PO SCH (20:56)
[2023-05-19] MEDS: LEVOTHYROXINE 50 MCG TAB PO SCH (06:20)
[2023-05-19 08:28] VITALS: RESP 16
[2023-05-19] MEDS ORDERED: ASPIRIN 325 MG TAB PO SCH (09:00)
[2023-05-19 09:12] LABS: Chol/HDL Ratio 2.85 Ratio; VLDL Calculation 16.34 mg/dL (5.00-40.00)
[2023-05-19] MEDS: ISOSORBIDE MONONITRATE ER 30 MG TAB.ER.24H PO SCH (09:46)
[2023-05-19] MEDS: METOPROLOL SUCCINATE (ER) 25 MG TAB.ER.24H PO SCH (09:46)
[2023-05-19] MEDS: OXcarbazepine 300 MG TAB PO SCH ×2 (09:46→21:50)
[2023-05-19] MEDS: ASPIRIN 81 MG PO SCH (09:46)
[2023-05-19] MEDS: ENOXAPARIN 40 MG/0.4 ML SYRINGE SQ SCH (09:46)
[2023-05-19] MEDS: lisinopriL 20 MG TAB PO SCH (09:46)
--- NOTE | 2023-05-19 10:33 | P.PN ---
Subjective Progress Note Date: 05/19/23 Progress note: Patient is doing well from cardiac vessel standpoint. She has not had any recurrence of her chest pain. Her symptoms are stable. Her vitals are stable. HISTORY OF PRESENTING ILLNESS Patient is a 73-year-old female with known history of hypertension, dyslipidemia and mild to moderate CAD. She had a heart catheterization in 2018 because of a positive nuclear stress test in the lateral wall. This was followed up by a cardiac catheterization which showed calcified coronaries with minimal disease involving the LCx and RCA. Since then she has been treated medically with Imdur and atorvastatin. She is known to Dr. Blake. Patient reported that since yesterday she has been having substernal chest pressure-like sensation which would come and go. This is not particularly related to activity or rest. She is not taking aspirin and is only on atorvastatin and Imdur Her ECG showed ectopic atrial with Q waves in anterior leads and inferior leads suggestive of old [place]. I don't have any prior ECGs to compare with. Her troponin and other labs are within normal limits REVIEW OF SYSTEMS 14 point review of system is negative except what is mentioned above in HPI. PHYSICAL EXAMINATION Vital signs reviewed. Head: Normocephalic. Eyes: Sclerae nonicteric. Neck: Brisk carotid upstroke, no jugular venous distention. Lungs: Clear to auscultation. Heart: Regular rate and rhythm, S1-S2, no S3, no murmur or rub. Abdomen: Soft nontender, positive bowel sounds no organomegaly. Extremities: No edema, intact distal pulses. ASSESSMENT Atypical chest pain. Rule out of acute coronary syndrome Ectopic atrial rhythm Q waves in anterior inferior leads suggestive of old [place] Prior positive nuclear stress test in lateral wall. Follow-up cardiac cath showed mild CAD PLAN Start aspirin 81 mg and metoprolol xl 25 mg day. Continue lisinopril, Imdur, atorvastatin. Obtain echocardiogram Obtain a Lexiscan nuclear stress test Follow-up after cardiac testing. If normal okay to be discharged Objective - Vital Signs Vital signs: Vital Signs Temp 97.5 F L 05/19/23 07:00 Pulse 65 05/19/23 07:00 Resp 16 05/19/23 07:00 BP 111/71 05/19/23 07:00 Pulse Ox 98 05/19/23 07:00 FiO2 Intake & Output 05/18/23 05/19/23 05/19/23 18:59 06:59 18:59 Intake Total 240 Balance 240 Weight 77.111 kg Intake: Oral 240 Other: # Voids 2 - Labs CBC & Chem 7: 05/18/23 07:29 05/18/23 07:29
--- NOTE | 2023-05-19 14:43 | CA ---
Transthoracic Echo Report Name: Miroslava Lala Age: 73 Gender: F : 1950 Exam Date: 05/18/2023 13:48 Exam Location: [place] Echo Ht (in): 64 Wt (lb): 170 Ordering Physician: Zachery Castillo MD ([email or web address]) Attending/Referring Phys: Leasing Agent Christie Kidd [facility] Procedure CPT: Indications: CP, use definity for anterior wall Cardiac Hx: Technical Quality: Fair Contrast 1: Lumason Total Dose (mL): 5 Contrast 2: Total Dose (mL): MEASUREMENTS (Male / Female) Normal Values 2D ECHO LV Diastolic Diameter PLAX 4.7 cm 4.2 - 5.9 / 3.9 - 5.3 cm LV Systolic Diameter PLAX 2.8 cm IVS Diastolic Thickness 0.8 cm 0.6 - 1.0 / 0.6 - 0.9 cm LVPW Diastolic Thickness 0.9 cm 0.6 - 1.0 / 0.6 - 0.9 cm LV Relative Wall Thickness 0.4 LVOT Diameter 2.0 cm Ascending Aorta Diameter 2.6 cm M-MODE Aortic Root Diameter MM 2.1 cm LA Systolic Diameter MM 3.5 cm LA Ao Ratio MM 1.7 AV Cusp Separation MM 1.5 cm DOPPLER AV Peak Velocity 127.9 cm/s AV Peak Gradient 6.5 mmHg AV Mean Velocity 92.7 cm/s AV Mean Gradient 3.8 mmHg AV Velocity Time Integral 33.8 cm LVOT Peak Velocity 112.6 cm/s LVOT Peak Gradient 5.1 mmHg LVOT Velocity Time Integral 28.0 cm LVOT Stroke Volume 85.2 cm??? LVOT Stroke Volume Index 46.7 ml/m??? LVOT Cardiac Index 2751.9 cm???/min???m??? AV Area Cont Eq vti 2.5 cm??? AV Area Cont Eq pk 2.7 cm??? Mitral E Point Velocity 73.0 cm/s Mitral A Point Velocity 112.3 cm/s Mitral E to A Ratio 0.6 MV Deceleration Time 147.8 ms LV E' Lateral Velocity 6.4 cm/s Mitral E to LV E' Lateral Ratio 11.4 LV E' Septal Velocity 7.7 cm/s Mitral E to LV E' Septal Ratio 9.5 TR Peak Velocity 271.9 cm/s TR Peak Gradient 29.6 mmHg Right Atrial Pressure 3.0 mmHg Pulmonary Artery Systolic Pressu 32.6 mmHg Right Ventricular Systolic Press 32.6 mmHg FINDINGS Left Ventricle Left ventricular wall thickness normal. Left ventricular cavity size normal. Normal left ventricular systolic function with no obvious regional wall motion abnormalities. Left ventricular ejection fraction is estimated at 55-60%. Right Ventricle Mild right ventricular dilatation. Mild pulmonary hypertension. Right Atrium Normal right atrial size. Left Atrium Left atrial size at the upper limits of normal. Mitral Valve Structurally normal mitral valve. Moderate mitral regurgitation. Aortic Valve Trileaflet aortic valve. No aortic valve stenosis or regurgitation. Tricuspid Valve Structurally normal tricuspid valve. Trace to mild tricuspid regurgitation. Pulmonic Valve Pulmonic valve not well visualized. Trace pulmonic regurgitation. Pericardium No effusion. Aorta Normal size aortic root and proximal ascending aorta. CONCLUSIONS Left ventricular ejection fraction is estimated at 55-60%. no obvious regional wall motion abnormalities. Moderate mitral regurgitation. Mild LA dilation No pericardial effusion. Previewed by: Dr Zachery Castillo (Electronically Signed) Final Date: 19 May 2023 14:42
--- NOTE | 2023-05-19 19:40 | P.PN ---
Progress Note - Text Progress Note Date: 05/19/23 Chief Complaint: Chest pressure This is a pleasant 73-year-old patient who follows with Dr. Vineet Hernández. Chronic stable medical conditions include hypertension, hyperlipidemia, hypothyroid. No prior cardiac history. Since yesterday afternoon. She didn't getting episodes of days of chest pressure. Anteriorly. No radiation. No dizziness no lightheadedness. No perspiration tiredness nausea. Presented for the same. Patient in 1999 had a cardiac catheterization was told she has about 10-20% disease. By Dr. Blake. Accompanied by in the ER. May 19: No chest pain. Up to the bathroom. Pending stress test tomorrow. Discussed with patient and . Active Medications Aspirin (Aspirin 81 Mg) 81 mg PO DAILY [facility] Last Admin: 05/19/23 09:46 Dose: 81 mg Atorvastatin Calcium (Atorvastatin 40 Mg Tab) 40 mg PO HS [facility] Last Admin: 05/18/23 20:56 Dose: 40 mg Enoxaparin Sodium (Enoxaparin 40 Mg/0.4 Ml Syringe) 40 mg SQ DAILY [facility] Last Admin: 05/19/23 09:46 Dose: 40 mg Isosorbide Mononitrate (Isosorbide Mononitrate Er 30 Mg Tab.Er.24h) 30 mg PO DAILY [facility] Last Admin: 05/19/23 09:46 Dose: 30 mg Levothyroxine Sodium (Levothyroxine 50 Mcg Tab) 50 mcg PO DAILY@0630 [facility] Last Admin: 05/19/23 06:20 Dose: 50 mcg Lisinopril (Lisinopril 20 Mg Tab) 40 mg PO DAILY [facility] Last Admin: 05/19/23 09:46 Dose: 40 mg Metoprolol Succinate (Metoprolol Succinate (Er) 25 Mg Tab.Er.24h) 25 mg PO DAILY [facility] Last Admin: 05/19/23 09:46 Dose: 25 mg Nitroglycerin (Nitroglycerin Sl Tabs 0.4 Mg Tab) 0.4 mg SUBLINGUAL Q5M PRN PRN Reason: Chest Pain Oxcarbazepine (Oxcarbazepine 300 Mg Tab) 300 mg PO BID [facility] Last Admin: 05/19/23 09:46 Dose: 300 mg Regadenoson (Regadenoson 0.4 Mg/5 Ml Syringe) 0.4 mg IV ONCE PRN PRN Reason: Per Protocol Stop: 10/14/23 17:22 On examination: VITAL SIGNS: [97.5, 65, 16, 111/ 74, 98% room air] GENERAL APPEARANCE: Sitting up in chair, comfortable HEENT: Normal external appearance of nose and ear. Oral cavity normal EYES: Pupils equal. Conjunctiva normal. NECK: JVD not raised. Mass not palpable. RESPIRATORY: Respiratory effort normal. Lungs clear to auscultation. CARDIOVASCULAR: First and second sounds normal. No edema. ABDOMEN: Soft. Liver and spleen not palpable. No tenderness. No mass palpable. PSYCHIATRY: Alert and oriented x3. Mood and affect normal. INVESTIGATIONS, reviewed in the clinical context: White count 6.4 hemoglobin 13.5 platelets 166 sodium 134 potassium 4.2 creatinine 0.57 Troponin I 3 negative EKG tracing personally reviewed by me-. Poor R-wave progression anterior leads Chest x-ray film personally reviewed by me-some hyperinflation. Assessment and plan: -Anterior chest wall pain. Rule out cardiac cause. Cardiac risk factors include hypertension, hyperlipidemia, age, prior smoker Telemetry. Will need a stress test. Aspirin -Essential hypertension Toprol XL 25 mg a day.-Hold Vasotec -Hyperlipidemia Crestor 20 mg daily at bedtime -Hypothyroid Synthroid 50 g a day Discussed. Pending stress test. .
[2023-05-19] MEDS: ATORVASTATIN 40 MG TAB PO SCH (21:50)
[2023-05-20] MEDS ORDERED: REGADENOSON 0.4 MG/5 ML SYRINGE IV PRN (06:00)
[2023-05-20] MEDS: LEVOTHYROXINE 50 MCG TAB PO SCH (06:21)
--- NOTE | 2023-05-20 08:59 | P.PN ---
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
[2023-05-20 09:36] VITALS: BP 128/78; PULSE 74; TEMP 97.6
--- NOTE | 2023-05-20 10:10 | CA ---
Lexiscan Nuclear Stress Test Report Name: Miroslava Lala Exam Date: 05/20/2023 09:16 Exam Location: [place] Stress Ht (in): 64 Wt (lb): 170 BSA: 1.83 Ordering Phys: Zachery Castillo MD Referring Phys: Edgar, Technologist: SHANDA,, Age: 73 Gender: F : 1950 Procedure CPT: Indications: Reflex order-Stress test ICD-10 Codes: Patient History: Chest pain Medications: Meds past 24 hrs: Pretest Chest Pain: STRESS TEST Lexiscan Protocol Exercise Duration (min:sec): 02:[address] Depressions (mm): Angina Score: Villalobos Score: Resting HR (bpm): 65 Peak HR (bpm): 101 Resting BP (mmHg): 147 / 70 Peak BP (mmHg): / 57 MPHR: 148 Target HR: 126 % MPHR: 68 METS: 1.0 Total Dose: Peak Dose: Atropine: Double Product: BP Response: Stress Termination: Infusion complete Stress Symptoms: No chest pain or symptoms Stress Summary: ECG ANALYSIS Resting ECG: Stress ECG: CONCLUSIONS Normal heart rate and blood pressure during Lexiscan infusion No ECG abnormalities consistent with ischemia Nuclear portion will be reported separately Dr. Gagandeep Valdez MD (Electronically Signed) Final Date: 20 May 2023 10:10
[2023-05-20] MEDS: ASPIRIN 81 MG PO SCH (10:25)
[2023-05-20] MEDS: ENOXAPARIN 40 MG/0.4 ML SYRINGE SQ SCH (10:25)
[2023-05-20] MEDS: OXcarbazepine 300 MG TAB PO SCH (10:26)
--- NOTE | 2023-05-20 11:44 | NM ---
EXAMINATION TYPE: NM stress lexiscan cardiolite DATE OF EXAM: 05/20/2023 COMPARISON: NONE HISTORY: Chest pain TECHNIQUE: After the intravenous administration of 9.9 mCi Tc 99m Sestamibi - Cardiolite resting SPE CT images acquired 45 minutes post injection. At peak stress 24 mCi Tc 99m Sestamibi - Stress images obtained 45 minutes post injection The patient was stressed with 0.4mg Lexiscan. FINDINGS: No fixed defects are evident No reversible stress defects on Spect images Wall motion is normal Ejection fraction is calculated to be 63 %. IMPRESSION: 1. No stress-induced ischemic changes.
--- NOTE | 2023-05-20 21:47 | P.DS ---
Providers Date of admission: 05/18/23 08:36 Expected date of discharge: 05/20/23 Attending physician: Jefe Suárez Consults: 05/18/23 08:35 Consult Physician Urgent Consulting Provider: Boy Quintanilla Consult Reason/Comments: cp Do you want consulting provider notified?: Yes Primary care physician: [facility] Course: Chief Complaint: Chest pressure This is a pleasant 73-year-old patient who follows with Dr. Vineet Hernández. Chronic stable medical conditions include hypertension, hyperlipidemia, hypothyroid. No prior cardiac history. Since yesterday afternoon. She didn't getting episodes of days of chest pressure. Anteriorly. No radiation. No dizziness no lightheadedness. No perspiration tiredness nausea. Presented for the same. Patient in 1999 had a cardiac catheterization was told she has about 10-20% disease. By Dr. Blake. Accompanied by in the ER. May 19: No chest pain. Up to the bathroom. Pending stress test tomorrow. Discussed with patient and . May 20: Nuclear stress test-negative. No chronic symptoms. Up and about. Discussed. Patient be discharged her home medications. Follow with Dr. Blake. On examination: VITAL SIGNS: 97.6, 74, 16, 128/78, 98% room air GENERAL APPEARANCE: Sitting up in chair, comfortable HEENT: Normal external appearance of nose and ear. Oral cavity normal EYES: Pupils equal. Conjunctiva normal. NECK: JVD not raised. Mass not palpable. RESPIRATORY: Respiratory effort normal. Lungs clear to auscultation. CARDIOVASCULAR: First and second sounds normal. No edema. ABDOMEN: Soft. Liver and spleen not palpable. No tenderness. No mass palpable. PSYCHIATRY: Alert and oriented x3. Mood and affect normal. INVESTIGATIONS, reviewed in the clinical context: Nuclear stress test: Negative for ischemia White count 6.4 hemoglobin 13.5 platelets 166 sodium 134 potassium 4.2 creatinine 0.57 Troponin I 3 negative EKG tracing personally reviewed by me-. Poor R-wave progression anterior leads Chest x-ray film personally reviewed by me-some hyperinflation. Assessment and plan: -Anterior chest wall pain. Rule out cardiac cause. Cardiac risk factors include hypertension, hyperlipidemia, age, prior smoker: Possibly muscular skeletal pain Negative nuclear stress test. Aspirin -Essential hypertension Vasotec 10 mg twice a day -Hyperlipidemia Crestor 20 mg daily at bedtime -Hypothyroid Synthroid 50 g a day Disposition: Home . Plan - Discharge Summary New Discharge Prescriptions: New Aspirin 81 mg PO DAILY tab Nitroglycerin Sl Tabs [Nitrostat] 0.4 mg SUBLINGUAL Q5M PRN #30 tab PRN Reason: Chest Pain Continue Levothyroxine Sodium [Synthroid] 50 mcg PO DAILY Enalapril [Vasotec] 10 mg PO BID Isosorbide Mononitrate ER [Imdur] 30 mg PO DAILY #90 tab.er.24h Rosuvastatin [Crestor] 20 mg PO HS OXcarbazepine [Trileptal] 300 mg PO BID Discharge Medication List Enalapril [Vasotec] 10 mg PO BID 05/12/14 [History] Levothyroxine Sodium [Synthroid] 50 mcg PO DAILY 05/12/14 [History] Isosorbide Mononitrate ER [Imdur] 30 mg PO DAILY #90 tab.er.24h 04/03/18 [Rx] OXcarbazepine [Trileptal] 300 mg PO BID 05/18/23 [History] Rosuvastatin [Crestor] 20 mg PO HS 05/18/23 [History] Aspirin 81 mg PO DAILY tab 05/20/23 [Rx] Nitroglycerin Sl Tabs [Nitrostat] 0.4 mg SUBLINGUAL Q5M PRN #30 tab 05/20/23 [Rx] Follow up Appointment(s)/Referral(s): Mya Blake MD [STAFF PHYSICIAN] - 1 Week Vineet Hernández DO [Primary Care Provider] - 1-2 days Discharge Disposition: HOME SELF-CARE
== END 2023-05-20 14:28 | disposition home or self-care (01) ==
LOC: EC 06:57 → 6NMEDSUR 08:36
PROVIDERS: ADMIT Hospitalist; ATTEND Hospitalist
DX: R07.89 Other chest pain (principal); E78.5 Hyperlipidemia, unspecified; I10 Essential (primary) hypertension; I25.10 Atherosclerotic heart disease of native coronary artery without angina pectoris; E03.9 Hypothyroidism, unspecified; Z79.82 Long term (current) use of aspirin; Z79.890 Hormone replacement therapy; Z79.899 Other long term (current) drug therapy
CPT/HCPCS: 96372 ×2; 99285; 36415; 93005; 93017; 85379; 80061; 80053; 83735; 84484; 85025; 85610; 85730; 71046; 78452; G0378 ×3; C8929; A9500; J1650 ×2; J2785; Q9950; 93306

== ENCOUNTER → 2023-07-15 | Outpatient (CLI) | payer MEDICARE ==
--- NOTE | 2023-07-15 11:42 | US ---
EXAMINATION TYPE: US carotid duplex BILAT DATE OF EXAM: 07/15/2023 COMPARISON: NONE CLINICAL INDICATION: Female, 73 years old with history of R42 DIZZINESS AND GIDDINESS; Patient states in June she didn't feel right and had heart work up. HTN controlled with meds. TECHNIQUE: Carotid duplex ultrasound examination. Indirect Doppler criteria was utilized. FINDINGS: EXAM MEASUREMENTS: RIGHT: Peak Systolic Velocity (PSV) cm/sec ----- Right CCA: 80.9 ----- Right ICA: 79.0 ----- Right ECA: 130.2 ICA/CCA ratio: 1.0 RIGHT: End Diastole cm/sec ----- Right CCA: 19.3 ----- Right ICA: 25.2 ----- Right ECA: 5.8 LEFT: Peak Systolic Velocity (PSV) cm/sec ----- Left CCA: 79.8 ----- Left ICA: 96.9 ----- Left ECA: 96.5 ICA/CCA ratio: 1.2 LEFT: End Diastole cm/sec ----- Left CCA: 17.1 ----- Left ICA: 24.5 ----- Left ECA: 16.3 VERTEBRALS (direction of flow): Right Vertebral: Antegrade Left Vertebral: Antegrade Rhythm: Normal AIR DEFENSE CONTROL OFFICER NOTES: Plaque in bilateral bulbs. No significant stenosis. Mildly elevated right ECA ve locity. IMPRESSION: No hemodynamically significant internal carotid artery stenosis on either side. Criteria for Assigning % of Stenosis / Diameter reduction (Estimation based on the indirect measurements of the internal carotid artery velocities (ICA PSV). 1. Normal (no stenosis)=ICA PSV < 125 cm/s: ratio < 2.0: ICA EDV<40 cm/s. 2. Less than 50% stenosis=ICA PSV < 125 cm/s: ratio < 2.0: ICA EDV<40 cm/s. 3. 50 to 69% stenosis=ICA PSV of 125 to 230 cm/s: ration 2.0 ? 4.0: ICA EDV 40-100 cm/s. 4. Greater than 70% stenosis to near occlusion= ICA PSV > 230 cm/s: ratio > 4.0: ICA EDV > 100 cm/s. 5. Near occlusion= ICA PSV velocities may be low or undetectable: variable ratio and ICA EDV. 6. Total occlusion=unable to detect flow.
== END | disposition home or self-care (01) ==
LOC: RADUSWWP 10:46
PROVIDERS: ATTEND Family Medicine
DX: R42 Dizziness and giddiness (principal); I10 Essential (primary) hypertension
CPT/HCPCS: 93880

== ENCOUNTER → 2024-05-26 | Outpatient (CLI) | payer MEDICARE ==
--- NOTE | 2024-05-27 11:12 | MM ---
Reason for Exam: Screening (asymptomatic). Last screening mammogram was performed 12 month(s) ago. Patient History: Menarche at age 14. First Full-Term at age 21. Postmenopausal. Estrogen for 2 years from age 51 until age 53. Progesterone for 2 years from age 51 until age 53. Patient used Hormonal Contraceptives for 10 years. Risk Values: Halle 5 year model risk: 1.6%. NCI Lifetime model risk: 3.9%. Prior Study Comparison: 12/17/2016 Bilateral Screening Mammogram, [facility]. 02/17/2018 Bilateral Screening Mammogram, [facility]. 03/05/2019 Bilateral Screening Mammogram, [facility] 05/03/2020 Bilateral Screening Mammogram, [facility]. 05/04/2021 Bilateral Screening Mammogram, [facility] 05/10/2022 Bilateral MG 3D screening mammo w/cad, [facility]. 05/13/2023 Bilateral MG 3D screening mammo w/cad, [facility]. Tissue Density: There are scattered areas of fibroglandular density. Findings: Analyzed By CAD. There is no suspicious group of microcalcifications or new suspicious mass in either breast. Overall Assessment: Negative, BI-RAD 1 Management: Screening Mammogram of both breasts in 1 year. . Patient should continue monthly self-breast exams. A clinical breast exam by your physician is recommended on an annual basis. This exam should not preclude additional follow-up of suspicious palpable abnormalities. Note on Halle scores and lifetime risk: 1. A Halle score greater than 3% is considered moderate risk. If this is the case, consider specialist referral to assess eligibility for a risk reducing agent. 2. If overall lifetime risk for the development of breast cancer is 20% or higher, the patient may qualify for future screening with alternating mammogram and breast MRI. [facility], , 05/27/2024 11:09 AM. Electronically signed and approved by: Golden Ocampo M.D. Radiologis
== END | disposition home or self-care (01) ==
LOC: RADMAMWWP 12:28
PROVIDERS: ATTEND Family Medicine
DX: Z12.31 Encounter for screening mammogram for malignant neoplasm of breast
CPT/HCPCS: 77063; 77067